=== PATIENT | female | born 1985 | race Caucasian/White ===

== ENCOUNTER 2018-09-29 12:37 | Observation (INO) | payer OTHER ==
[2018-09-29 12:52] LABS: PLATELET COUNT 252 10^3/uL (150-400)
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
[2018-09-29] MEDS ORDERED: LORazepam 2 MG/ML INJ ONE (14:05)
[2018-09-29] MEDS ORDERED: levETIRAcetam 1000MG/NACL 100 ML IV ONE (14:08)
[2018-09-29] MEDS ORDERED: LORazepam 2 MG/ML INJ IVP ONE (14:15)
--- NOTE | 2018-09-29 15:06 | CPEKG ---
Test Reason : OPEN Blood Pressure : / mmHG Vent. Rate : 101 BPM Atrial Rate : 101 BPM P-R Int : 128 ms QRS Dur : 064 ms QT Int : 346 ms P-R-T Axes : 063 079 035 degrees QTc Int : 449 ms Sinus tachycardia Minimal ST depression, diffuse leads Confirmed by Nati Tao ([id number]) on 09/29/2018 3:06:13 PM Referred By: Nati Tao Confirmed By:Nati Tao
[2018-09-29] MEDS ORDERED: ACETAMINOPHEN 325 MG TAB PO PRN (15:25)
[2018-09-29] MEDS ORDERED: LORazepam 2 MG/ML INJ IVP PRN (15:27)
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
[2018-09-29] MEDS: NS 1,000 ML IV SCH (17:08)
[2018-09-29] MEDS ORDERED: ONDANSETRON 4 MG/2 ML VIAL IVP PRN (19:22)
[2018-09-29] MEDS ORDERED: ONDANSETRON DISINTEGRATING 4 MG TAB PO PRN (19:22)
[2018-09-29] MEDS ORDERED: TOPIRAMATE 100 MG TAB PO SCH (21:00)
[2018-09-29] MEDS ORDERED: MIRTAZAPINE 15 MG TAB PO SCH (21:00)
[2018-09-29] MEDS: levETIRAcetam 1500MG/NACL 100 ML IV SCH (21:25)
[2018-09-29] MEDS: TOPIRAMATE 25 MG TAB PO SCH (21:26)
[2018-09-29] MEDS: TOPIRAMATE 100 MG TAB PO SCH (21:36)
[2018-09-29] MEDS: CLOBAZAM 10 MG PO SCH (21:37)
[2018-09-30] MEDS: NS 1,000 ML IV SCH (01:10)
[2018-09-30] MEDS ORDERED: LORazepam 2 MG/ML INJ IVP ONE (01:59)
[2018-09-30 04:48] LABS: PLATELET COUNT 185 10^3/uL (150-400)
[2018-09-30] MEDS ORDERED: ENOXAPARIN 40 MG/0.4 ML SYR SC SCH (09:00)
[2018-09-30] MEDS: levETIRAcetam 1500MG/NACL 100 ML IV SCH (09:21)
[2018-09-30] MEDS: TOPIRAMATE 25 MG TAB PO SCH (09:22)
[2018-09-30] MEDS: TOPIRAMATE 100 MG TAB PO SCH (09:22)
[2018-09-30] MEDS: CLOBAZAM 10 MG PO SCH (09:28)
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
[2018-09-30 11:58] VITALS: BP 109/76
--- NOTE | 2018-09-30 12:35 | ASMTLACE ---
MICHAELE Length of stay for Answers: 2 days current admission Acuity / Level of Answers: No Care: Did the patient have an inpatient admission? Comorbidities - select Answers: Other Notes: Seizure dis all that apply # of Emergency department Answers: 1-2 visits in the last 6 months Score: 4 Date Signed: 09/30/2018 12:35 PM Electronically Signed By:DOMINGO Lam
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
== END 2018-09-30 13:48 | disposition home or self-care (01) ==
LOC: F2N 14:57
PROVIDERS: ADMIT Internal Medicine; ATTEND Internal Medicine
DX: G40.309 Generalized idiopathic epilepsy and epileptic syndromes, not intractable, without status epilepticus (principal); D64.9 Anemia, unspecified
CPT/HCPCS: 70450; 93005; 96365; 96372; 96375; 96376; 99285; G0378; 80177-90; G0480; J1650; J1953; J2060; J2405